=== PATIENT | female | born 1995 | race African-American/Black ===

== ENCOUNTER 2016-11-26 00:07 | Emergency (ER) | payer BC ==
[~2016-11-26] VITALS: Ht 160 cm; Wt 70.0 kg
[2016-11-26 00:15] VITALS: TEMP 36.8; O2SAT 96; Ht 160 cm; Wt 70.0 kg
[2016-11-26 00:52] LABS: BUN/CREATININE RATIO 20.2 (10-20); CALCIUM 9.1 mg/dl (8.5-10.1); CREATININE 0.71 mg/dl (0.60-1.20); POTASSIUM 3.2 mmol/L (3.5-5.1)
[2016-11-26 01:14] LABS: PREG INTERNAL NEGATIVE QC NEG CLEAR BACKGROUND; PREG INTERNAL POSITIVE QC POS CONTROL LINE
--- NOTE | 2016-11-26 06:10 | EMERGENCY ROOM VISIT NOTE ---
History First contact with patient: 00:17 Chief Complaint: ALCOHOL OVERDOSE Stated Complaint: FALL/ALCOHOL OVERDOSE Nursing Triage Summary: pt was found at the [place], pt fell down what she says was 3 steps and she hit her head, denies loc or any pain, pt states she drank 4 shots[address] PD on scene but did not pbt her History of Present Illness The patient is a 21 year old female who presents to the Emergency Room via BLS for evaluation of an alcohol overdose and fall. Per EMS, the patient was found at the home and had fallen down several steps and hit her head. The patient admits to drinking 4 shots tonight. She has no complaints at this time. She denies any medical problems. She denies any other drug use. Review of Systems A complete 10-point Review of Systems was discussed with the patient, with pertinent positives and negatives listed in the History of Present Illness. All remaining Review of Systems questions can be considered negative unless otherwise specified. Family History No pertinent family history Social History Smoking Status: Never Smoker Housing Status: lives with roommate Occupation Status: [employer] student Current/Historical Medications No Active Prescriptions or Reported Meds Allergies Coded Allergies: No Known Allergies (Unverified , 11/26/16) Physical Exam Vital Signs Date Time Temp Pulse Resp B/P Pulse Ox O2 Delivery O2 Flow Rate FiO2 11/26/16 06:30 79 15 119/48 97 11/26/16 05:45 78 16 96 11/26/16 05:30 77 20 117/54 96 11/26/16 05:15 87 15 99 11/26/16 05:00 84 22 97/55 100 11/26/16 04:45 80 16 98 11/26/16 04:30 77 13 102/39 96 11/26/16 04:15 74 11/26/16 03:30 76 15 93/38 96 11/26/16 03:00 76 13 97/41 97 11/26/16 02:30 70 15 89/36 96 Room Air 11/26/16 02:00 71 15 87/36 96 Room Air 11/26/16 01:30 70 16 89/33 95 Room Air 11/26/16 01:08 72 16 91/42 96 Room Air 11/26/16 00:20 86 11/26/16 00:15 36.8 99 12 140/86 96 Room Air 11/26/16 00:15 96 Room Air Physical Exam VITALS: Vitals are noted on the nurse's note and reviewed by myself. Vital signs stable. GENERAL: This is a 21-year-old female, lying prone in bed, appears to be visibly intoxicated, smells of ETOH. SKIN: The skin was without erythema, edema, or bruising. HEAD: Normocephalic atraumatic. EARS: External auditory canals clear. No hemotympanum. EYES: Pupils equal round and reactive to light and accommodation. NOSE: No deformities noted. MOUTH: No loose or chipped teeth. NECK: No cervicle spine tenderness. HEART: Regular rate and rhythm without murmurs gallops or rubs. LUNGS: Clear to auscultation bilaterally without wheezes, rales or rhonchi. ABDOMEN: Soft, nontender. MUSCULOSKELETAL: Full range of motion throughout. Strength intact throughout. NEURO: Patient was alert and oriented to person place and time. Speech slurred. Gross sensation intact. Patient cooperative with examiner. Medical Decision & Procedures ER Provider Diagnostic Interpretation: CT HEAD: No ICH, mass effect or edema. No skull fracture. Maxillary Sinus disease. RADIOLOGIST: Devyn Jackson M.D. Laboratory Results 11/26/16 00:15 Test 11/26/16 00:15 Anion Gap 11.0 mmol/L (3-11) Est Creatinine Clear Calc Drug Dose 118.6 ml/min Estimated GFR () 142.1 Estimated GFR (Non- 122.6 BUN/Creatinine Ratio 20.2 (10-20) Calcium Level 9.1 mg/dl (8.5-10.1) Human Chorionic Gonadotropin, Qual NEG (NEG) Ethyl Alcohol mg/dL 267.0 mg/dl (0-3) Medical Decision Differential diagnosis includes alcohol intoxication, drug use, head trauma, hypoglycemia. The patient was evaluated as above. She is a 21-year-old female who presents for evaluation of alcohol intoxication and a fall. CT of the head was performed due to apparent head trauma and was read by stat rad with no acute findings. Labs revealed an alcohol of 267. There is a mild hypokalemia likely secondary to drinking. Kidney function was within normal limits. The patient was placed in the prone position and placed on the monitoring analyst. She was frequently reassessed throughout her stay and had no complaints. When the patient had sobered up, she was able to find a sober friend to take her home. The patient was discharged home with a sober friend in good condition. Impression Primary Impression: Alcohol use with intoxication Additional Impression: Closed head injury Departure Information Dispostion Home / Self-Care Condition GOOD Prescriptions No Active Prescriptions or Reported Meds Referrals No Doctor, Assigned (PCP) Patient Instructions My [facility] Additional Instructions Do not drink anymore alcohol today. Rest and drink plenty of fluids. For pain control, you can use the following [id number] medicines (if >12 yo): - Regular strength (325mg/tab) Tylenol (acetaminophen) 2 tabs every 4-6 hours as needed. Do not exceed 12 tablets in a 24 hour period. Avoid taking more than 4 grams (4000 mg) of Tylenol per day. This includes any other sources of acetaminophen you may take on a regular basis. - Regular strength (200 mg/tab) Advil (ibuprofen) 1-2 tabs every 4-6 hours as needed. Do not exceed a dose of 3200 mg per day. Problem Qualifiers Additional Impression: Closed head injury Encounter type: initial encounter Qualified Codes: S09.90XA - Unspecified injury of head, initial encounter
[2016-11-26 06:30] VITALS: BP 119/48; PULSE 79; O2SAT 97
--- NOTE | 2016-11-26 06:55 | DIAGNOSTIC IMAGING REPORT ---
CT HEAD WITHOUT CONTRAST (CT) CLINICAL HISTORY: Head trauma. Head pain. COMPARISON STUDY: No previous studies for comparison. TECHNIQUE: Axial CT of the brain is performed from the vertex to the skull base. IV contrast was not administered for this examination. CT DOSE: 767.83 mGy.cm FINDINGS: No intra or extra-axial mass lesions are visualized. There is no CT evidence of acute cortical infarction. There is no evidence of midline shift. There is no acute hemorrhage. No calvarial fractures are visualized. There is no evidence of pathologic ventricular dilatation. There are large bilateral maxilla sinus retention cyst. IMPRESSION: Maxilla sinus retention cysts. Otherwise normal noncontrast head CT. Electronically signed by: Michael Da Silva M.D. 11/26/2016 6:53 AM Dictated Date/Time: 11/26/2016 6:51 AM
== END 2016-11-26 06:47 | disposition home or self-care (01) ==
LOC: EDBD 00:07 → C.EDA 00:10
DX: F10.129 Alcohol abuse with intoxication, unspecified (principal); Y90.8 Blood alcohol level of 240 mg/100 ml or more; S09.90XA Unspecified injury of head, initial encounter; W10.8XXA Fall (on) (from) other stairs and steps, initial encounter

== ENCOUNTER 2016-12-01 15:22 | Emergency (ER) | payer BC ==
[~2016-12-01] VITALS: Ht 160 cm; Wt 70.4 kg
[2016-12-01 15:25] VITALS: TEMP 36.7; Ht 160 cm; Wt 70.4 kg
--- NOTE | 2016-12-01 16:14 | DIAGNOSTIC IMAGING REPORT ---
CT HEAD WITHOUT CONTRAST (CT) CLINICAL HISTORY: Recent head trauma. Weakness. Abnormal vision. COMPARISON STUDY: 11/24/2016 TECHNIQUE: Axial CT of the brain is performed from the vertex to the skull base. IV contrast was not administered for this examination. CT DOSE: 537.48 mGy.cm FINDINGS: No intra or extra-axial mass lesions are visualized. There is no CT evidence of acute cortical infarction. There is no evidence of midline shift. There is no acute hemorrhage. No calvarial fractures are visualized. There is no evidence of pathologic ventricular dilatation. There is partial visualization of bilateral maxillary sinus retention cyst. IMPRESSION: No change from the prior study. No acute intracranial findings. Electronically signed by: Michael Da Silva M.D. 12/01/2016 4:13 PM Dictated Date/Time: 12/01/2016 4:11 PM
[2016-12-01 16:51] VITALS: BP 126/80; PULSE 109; O2SAT 96
--- NOTE | 2016-12-03 09:30 | EMERGENCY ROOM VISIT NOTE ---
ED Visit Note First contact with patient: 15:36 Chief Complaint: Dizziness and blurred vision. History of Present Illness: Ms. Sherman is a 21-year-old white female who ambulates into the ED complaining of dizziness and blurred vision. Historically patient was seen in the emergency department on November 26 for acute alcohol intoxication and a closed head injury following a fall. At that time CT of the head was performed and no acute injuries were found. Patient reports since waking from her alcohol overdose and head injury at home she has been having dizziness and a sensation of her "vision stopping" when she moves her head. When she is not moving her head these symptoms resolved. She expresses concerns for an intercranial bleed. She denies any associated symptoms including headache, decreasing or loss of vision, hearing changes, difficulty speaking, difficulty swallowing, difficulty ambulating/coordinating body movements, neck pain, back pain, abdominal pain, nausea/vomiting, extremity weakness/numbness/tingling. Additionally she denies any new head trauma since her previous falls. Review of Systems: As noted above in history of present illness. Past Medical History: As noted above and status post labial surgery. Current Medications: Patient denies. Allergies to Medications: Patient denies. Social History: Patient is currently employed; she feels safe in her home environment; she denies tobacco use and admits to alcohol use. Physical Examination: Vital Signs: Date Time Temp Pulse Resp B/P Pulse Ox O2 Delivery O2 Flow Rate FiO2 12/01/16 16:51 109 18 126/80 96 12/01/16 15:25 36.7 101 18 122/79 95 Room Air GENERAL: 21-year-old female in no acute distress, nontoxic-appearing, afebrile and hemodynamically stable. Patient does appear slightly anxious. NEUROLOGICAL: Awake, alert and oriented to person, place and time. Answering questions appropriately and following commands. Normal gait. Good hand eye coordination. No focal motor sensory deficits. Romberg test is unsteady but negative. Pronator drift test is negative. Cranial nerves II through XII grossly intact. Good short-term and long-term recall. Able to spell backwards. Normal heel bryant test. Normal rapid alternating movements of the hands and fingers. SKIN: Warm, dry and pink. No soft tissue trauma noted. HEENT: Atraumatic and normocephalic. Skull: No bony deformity, crepitus, swelling, ecchymosis. No raccoon's eyes or rae signs. No drainage from the ears or the nostril; no hemotympanum. PERRLA. EOMI without nystagmus. Funduscopic examination is unremarkable with a normal-appearing disc and no signs of increased intracranial pressure. Sclera white and conjunctiva pink. Face: No bony deformity, crepitus, swelling or ecchymosis. No malocclusion. No intraoral trauma. Airway patent. Speech normal. Trachea midline. No jugular venous distention. BACK: No tenderness over the bony cervical or thoracic spine. Full range of motion of the cervical spine. EXTREMITIES: Moves all extremities well on command and with purpose. All distal neurovascular statuses are intact and equal bilaterally. 5/5 muscle strength in all movements of the shoulders, elbows, forearms, wrists, hips, knees and ankles. ED Course: Patient is assessed as noted above. I did have a discussion with the patient about the risks and benefits of CT and she requested that a CT be performed. Head CT: Was reviewed by myself and the radiologist showing no intracranial bleeds or abnormalities and no skull fractures. Patient was educated about tonight's findings and instructed on her treatment plan; she verbalizes understanding and agreement with this plan. Clinical Impression: Mild concussive syndromes. Disposition: Patient discharged home in stable condition; prior to departure she was reassessed and subjectively reported she was feeling the same. Plan: Patient was encouraged to alternate ibuprofen and acetaminophen as needed for pain and stay well hydrated. Patient was encouraged to avoid strenuous exercise and alcohol until resolution of all symptoms. Patient was encouraged to follow-up at the local concussion clinic for specialty care. Patient was educated on signs of worsening head injury. Patient was encouraged return the ED for any signs of worsening head injury or any new/concerning symptoms.
== END 2016-12-01 16:50 | disposition home or self-care (01) ==
LOC: C.EDB 15:23 → C.EDD 16:50
DX: R42 Dizziness and giddiness (principal); H53.8 Other visual disturbances